=== PATIENT | male | born 1990 | race Caucasian/White ===

== ENCOUNTER → 2019-04-23 | Outpatient (CLI) | payer OTHER | END | disposition home or self-care (01) | LOC: RAD 15:52 | DX: R05 Cough (principal) ==

== ENCOUNTER 2019-07-27 19:18 | Emergency (ER) | payer OTHER ==
[~2019-07-27] VITALS: Ht 175.3 cm; Wt 70.3 kg
== END 2019-07-27 22:50 | disposition home or self-care (01) ==
LOC: ER 19:18
DX: S40.011A Contusion of right shoulder, initial encounter (principal); S80.01XA Contusion of right knee, initial encounter; W18.39XA Other fall on same level, initial encounter; Y93.89 Activity, other specified; Y92.89 Other specified places as the place of occurrence of the external cause; Y99.8 Other external cause status

== ENCOUNTER 2020-03-07 22:14 | Emergency (ER) | payer OTHER ==
[~2020-03-07] VITALS: Ht 175.3 cm; Wt 72.6 kg
== END 2020-03-08 02:00 | disposition home or self-care (01) ==
LOC: ER 22:14
DX: U07.1 COVID-19 (principal)

== ENCOUNTER 2021-09-14 14:30 | Outpatient (CLI) | payer OTHER | END 2021-09-14 14:40 | disposition home or self-care (01) | LOC: PPH VACUNA 14:30 | PROVIDERS: ATTEND Emergency Medicine Pediatric Emergency Medicine | DX: Z23 Encounter for immunization (principal) ==

== ENCOUNTER 2022-10-15 08:46 | Outpatient (CLI) | payer OTHER | END 2022-10-15 09:21 | disposition home or self-care (01) | LOC: LAB 08:46 | DX: Z20.822 Contact with and (suspected) exposure to COVID-19 (principal) ==